=== PATIENT | male | born 1985 | race African-American/Black ===

== ENCOUNTER 2017-09-08 06:10 | Emergency (ER) | payer MEDICAID ==
[~2017-09-08] VITALS: Ht 182.9 cm; Wt 86.2 kg
--- NOTE | 2017-09-08 06:32 | Emergency Room Report ---
History of Present Illness General Chief Complaint: Allergic Reaction Source: Patient Present Illness HPI Patient is a 32-year-old male who presented for increased urticarial skin rash patient gradual onset of symptoms. Reportedly been taking Benadryl. His last the Benadryl as part for 2 hours ago. Patient reported having generalized urticaria. Patient recently been started on doxycycline for Chlamydia. He denies any fever. He denies any sore throat. Allergies: Coded Allergies: No Known Allergies (Unverified , 09/08/17) Patient History Past Medical History: see triage record Reviewed Nursing Documentation: PMH: Agreed, PSxH: Agreed Nursing Documentation-PMH Past Medical History: No Stated History Review of Systems All Other Systems: negative except mentioned in HPI Physical Exam Vital Signs Date Time Temp Pulse Resp B/P (MAP) Pulse Ox O2 Delivery O2 Flow Rate FiO2 09/08/17 06:17 97.6 61 15 109/70 99 Room Air 97.5 General Appearance: well appearing, no apparent distress, alert, GCS 15 Head: normocephalic, atraumatic ENT: hearing grossly normal, normal voice Neck: full range of motion, supple Respiratory: no respiratory distress, speaking full sentences Musculoskeletal: normal inspection, back normal, no calf tenderness Neurologic: normal inspection, alert, normal gait Psychiatric: mood/affect normal Skin: no rash, other - urticaria rash Medical Decision Making Diagnostic Impression: Primary Impression: Allergic reaction ER Course Patient presented for skin rash. Differential diagnosis included was not limited to Olmedo-Bal syndrome, urticaria, erythema multiforme, contact dermatitis. Patient's benign exam and does not appear to require any further imaging or laboratory testing at this time. The patient presented with what appears to be an allergic reaction. The patient was given prescription for Pepcid and steroids. The patient is advised to follow up with primary care doctor in 1-2 days. Patient is advised to return if any worsening condition or if any changes in status that are concerning. This report is dictated with [employer] chemistry technician software which may occasionally lead to discrepancies related to use of this software. Last Vital Signs Date Time Temp Pulse Resp B/P (MAP) Pulse Ox O2 Delivery O2 Flow Rate FiO2 09/08/17 06:17 97.6 61 15 109/70 99 Room Air 97.5 Status: improved Disposition: HOME, SELF-CARE Condition: Stable DonatoEdison Sep 08, 2017 06:32
[2017-09-08] MEDS ORDERED: PEPCID20 MG ORAL (06:33)
[2017-09-08] MEDS ORDERED: PREDNISONE20 MG ORAL (06:33)
[2017-09-08 06:36] VITALS: BP 109/70
[2017-09-08 06:39] VITALS: BP 109/70
== END 2017-09-08 06:39 | disposition home or self-care (01) ==
LOC: EMR 06:36
DX: T78.40XA Allergy, unspecified, initial encounter (principal); X58.XXXA Exposure to other specified factors, initial encounter; R21 Rash and other nonspecific skin eruption
CPT/HCPCS: 99283

== ENCOUNTER 2017-11-12 21:12 | Emergency (ER) | payer MEDICAID ==
[~2017-11-12] VITALS: Ht 182.9 cm; Wt 81.6 kg
[~2017-11-12 21:12] MED LIST: PEPCID20 MG ORAL; PREDNISONE20 MG ORAL
[2017-11-12 21:40] VITALS: BP 114/70
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
[2017-11-12] MEDS ORDERED: Methocarbamol 750mg tab ORAL ONE (22:30)
[2017-11-12] MEDS ORDERED: ROBAXIN-750750 MG PO (22:45)
[2017-11-12] MEDS ORDERED: IBUPROFEN600 MG ORAL (22:45)
[2017-11-12 23:16] VITALS: BP 111/66
[2017-11-12 23:17] VITALS: BP 111/66
== END 2017-11-12 23:17 | disposition home or self-care (01) ==
LOC: EMR 21:30
DX: S33.5XXA Sprain of ligaments of lumbar spine, initial encounter (principal); V49.40XA Driver injured in collision with unspecified motor vehicles in traffic accident, initial encounter; Y92.410 Unspecified street and highway as the place of occurrence of the external cause
CPT/HCPCS: 99282

== ENCOUNTER 2020-02-14 11:28 | Emergency (ER) | payer MEDICAID ==
[~2020-02-14] VITALS: Ht 182.9 cm; Wt 77.1 kg
[~2020-02-14 11:28] MED LIST changes: +IBUPROFEN600 MG ORAL; +ROBAXIN-750750 MG PO
--- NOTE | 2020-02-14 11:41 | NUR ---
ED Nurse Note: Patient walked into ED from home c/o rash on bilaterl groin that is reccurent over the last few months. Patient states his partner had STIs. Patient requesting to be tested for STIs. Patient AxO x 4.
[2020-02-14 11:43] VITALS: BP 125/81
--- NOTE | 2020-02-14 11:44 | Emergency Room Report ---
History of Present Illness General Chief Complaint: Skin Rash/Abscess Source: Patient Present Illness HPI Patient is a 34-year-old male presents for increased pain rash. Reports having rash to the left groin area. Denies any penile discharge or burning sensation with urination. Denies any blistering. Reports having recent contact with someone positive for herpes. Allergies: Coded Allergies: No Known Allergies (Unverified , 09/08/17) COVID-19 Screening Contact w/high risk pt: No Experienced COVID-19 symptoms?: No COVID-19 Testing performed UROLOGIC SURGEON: No Patient History Past Medical History: see triage record Reviewed Nursing Documentation: PMH: Agreed; PSxH: Agreed Nursing Documentation-PMH Past Medical History: No Stated History Review of Systems All Other Systems: negative except mentioned in HPI Physical Exam Vital Signs Date Time Temp Pulse Resp B/P (MAP) Pulse Ox O2 Delivery O2 Flow Rate FiO2 02/14/20 11:32 98.4 75 20 129/85 (100) 97 Room Air Sp02 EP Interpretation: reviewed, normal General Appearance: normal inspection, well appearing, no apparent distress, alert, GCS 15 Head: atraumatic ENT: normal ENT inspection, hearing grossly normal, normal voice Neck: normal inspection, full range of motion, supple, no bony tend Respiratory: normal inspection, lungs clear, normal breath sounds, no respiratory distress, no retraction, no wheezing Cardiovascular #1: regular rate, rhythm, no edema Gastrointestinal: normal inspection, normal bowel sounds, non tender, soft, no guarding, no hernia Genitourinary: no CVA tenderness Musculoskeletal: normal inspection, back normal, normal range of motion Neurologic: alert, motor strength/tone normal, clinical nurse III-XII nml as tested, oriented x3, responsive, speech normal, normal inspection Psychiatric: normal inspection, judgement/insight normal, mood/affect normal Skin: no rash Medical Decision Making Diagnostic Impression: Primary Impression: Skin rash Last Vital Signs Date Time Temp Pulse Resp B/P (MAP) Pulse Ox O2 Delivery O2 Flow Rate FiO2 02/14/20 11:32 98.4 75 20 129/85 (100) 97 Room Air Status: improved Disposition: HOME, SELF-CARE Condition: Stable Patient Instructions: Rash Additional Instructions: Follow up with your doctor as needed. Return if worse. Edison Sewell MD Feb 14, 2020 11:44
[2020-02-14 11:46] VITALS: BP 125/81
--- NOTE | 2020-02-14 11:46 | NUR ---
ER DISCHARGE NOTE: Patient is cleared to be discharged per Dr. Sewell, pt is aox4, on room air, with stable vital signs. pt was given dc instructions, pt was able to verbalize understanding, pt id band removed. pt is able to ambulate with steady gait. pt took all belongings.
== END 2020-02-14 11:46 | disposition home or self-care (01) ==
LOC: EMR 11:45
DX: R21 Rash and other nonspecific skin eruption (principal)
CPT/HCPCS: 99281